=== PATIENT | female | born 1995 | race American Indian/Alaskan Native ===

== ENCOUNTER 2017-08-26 19:14 | Emergency (ER) | payer SELFPAY ==
[2017-08-26 20:32] LABS: Basophils # (Auto) 0.1 K/mm3 (0.0-0.1); Basophils % (Auto) 0.7 % (0.0-1.8); Eosinophils # (Auto) 0.3 K/mm3 (0.0-0.4); Eosinophils % (Auto) 3.5 % (0.0-4.3); Hemoglobin 12.3 gm/dl (10.1-14.3); Lymphocytes % (Auto) 27.5 % (13.4-35.0); Mean Corpuscular HGB Conc 32 % (30-34); Mean Corpuscular Hemoglobin 29 pg (28-32); Mean Corpuscular Volume 90 fl (79-97); Monocytes # (Auto) 0.6 K/mm3 (0.0-0.8); Monocytes % (Auto) 8.5 % (0.0-7.3); Platelet Count 290 K/mm3 (140-440); Red Blood Count 4.21 M/mm3 (3.65-5.03); Red Cell Distribution Width 14.7 % (13.2-15.2)
[2017-08-26 20:44] LABS: Alanine Aminotransferase 12 units/L (7-56); BUN/Creatinine Ratio 17; Blood Urea Nitrogen 10 mg/dL (7-17); Calcium 8.5 mg/dL (8.4-10.2); Hemolysis Index 0
[2017-08-26 22:24] LABS: Bacteria,Urine 1+ /HPF (Negative); Bilirubin,Urine NEG (Negative); Blood,Urine NEG (Negative); Color,Urine Yellow (Yellow); Mucus,Urine FEW /HPF; Protein,Urine <15 mg/dL mg/dL (Negative); Urobilinogen,Urine < 2.0 mg/dL (<2.0)
[2017-08-27 02:20] VITALS: BP 132/81
--- NOTE | 2017-08-27 02:52 | Emergency Department Report ---
HPI - General Chief Complaint: Abdominal Pain Time Seen by Provider: 08/27/17 02:00 - HPI HPI: 22-year-old female presents to the emergency department with complaint of a one-week history of some lower abdominal and/or pelvic cramping. She also has a history of 2 recent positive home urine test. She denies any vaginal bleeding. With this she would be . She denies any fever, vomiting, vaginal discharge, dysuria, back pain, headache. She does not have an CLAIMS ADMINISTRATOR. She denies any past medical history. No recent travel or sick contacts at home. She has not taken anything for her symptoms prior to presentation. ED Past Medical Hx - Past Medical History Previous Medical History?: Yes Additional medical history: HPV, eczema - Surgical History Past Surgical History?: Yes Additional Surgical History: dental surgery - Social History Smoking Status: Current Every Day Smoker Substance Use Type: None ED Review of Systems ROS: Stated complaint: ABD PAIN; + HOME PREG TEST Other details as noted in HPI Comment: All other systems reviewed and negative Constitutional: denies: chills, fever Eyes: denies: eye pain, eye discharge, vision change ENT: denies: ear pain, throat pain Respiratory: denies: cough, shortness of breath, wheezing Cardiovascular: denies: chest pain, palpitations Gastrointestinal: abdominal pain. denies: vomiting Genitourinary: denies: urgency, dysuria, discharge Musculoskeletal: denies: back pain, joint swelling, arthralgia Skin: denies: rash, lesions Neurological: denies: headache, weakness, paresthesias Physical Exam - Physical Exam Vital Signs: Vital Signs 08/26/17 08/27/17 20:08 02:19 Temperature 98.4 F Pulse Rate 82 84 Respiratory 18 18 Rate Blood Pressure 142/87 Blood Pressure 132/81 [Left] O2 Sat by Pulse 100 100 Oximetry ED Course Vital Signs 08/26/17 08/27/17 20:08 02:19 Temperature 98.4 F Pulse Rate 82 84 Respiratory 18 18 Rate Blood Pressure 142/87 Blood Pressure 132/81 [Left] O2 Sat by Pulse 100 100 Oximetry ED Medical Decision Making - Lab Data Result diagrams: 08/26/17 20:14 08/26/17 20:14 Critical care attestation.: If time is entered above; I have spent that time in minutes in the direct care of this critically ill patient, excluding procedure time. ED Disposition Clinical Impression: Threatened miscarriage Disposition: DC- TO HOME OR SELFCARE Is pt being admited?: No Condition: Stable Instructions: Abdominal Pain (ED), Threatened Miscarriage (ED), Spontaneous Miscarriage (ED) Additional Instructions: Please follow up with an CLAIMS ADMINISTRATOR or return to the emergency department in 3-5 days for a repeat hormone level. Today your hormone level/ beta-hCG was 170. If you get a repeat hormone level in 3-5 days and the number is increasing, this may be a very early . If the number is decreasing , then this was most likely a miscarriage. I have given you multiple CLAIMS ADMINISTRATOR referrals. Return to the emergency Department with any worsening of your symptoms or any acute distress. Referrals: [facility] [Provider Group] - 3-5 Days [facility] [Provider Group] - 3-[address] [facility] [Provider Group] - 3-5 Days Time of Disposition: 03:11
--- NOTE | 2017-08-27 02:59 | Ultrasound Report ---
FINAL REPORT EXAM: US OB < = 14 WEEKS FETUS HISTORY: pregnacy, pelvic pain COMPARISON: None available. TECHNIQUE: Several real-time grayscale and color Doppler images were obtained. Transabdominal and transvaginal exam. FINDINGS: No IUP or adnexal masses are demonstrated. The uterus measures 8.1 x 3.7 x 5.0 centimeters. Endometrial stripe measures 15 millimeters. This is borderline thickened. The right ovary measures 2.8 x 2.3 x 2.2 centimeters. The left ovary measures 4.7 x 2.8 x 4.5 centimeters. Within the left ovary, there is a cystic structure measuring 3.2 x 1.4 x 2.3 centimeters. There is a dominant follicle left ovary measuring 1.6 centimeters. There is gross vascular flow to the ovaries. Trace free fluid in the pelvis within physiologic limits. IMPRESSION: No IUP or adnexal masses are demonstrated. Endometrial stripe is borderline thickened. This may relate to patient's menstrual stage. Early developing IUP is not excluded. Correlation with serial beta HCGs and followup exam is suggested. 3.2 centimeter unilocular left ovarian cyst. This is likely physiologic given the patient's age.
== END 2017-08-27 03:40 | disposition home or self-care (01) ==
LOC: ED 19:14
DX: O20.0 Threatened abortion (principal); Z3A.00 Weeks of gestation of pregnancy not specified
CPT/HCPCS: 36415; 76801; 76817; 80053; 81001; 84702; 85025; 99284

== ENCOUNTER 2017-08-31 16:26 | Emergency (ER) | payer SELFPAY ==
[2017-08-31 17:01] VITALS: BP 159/93
--- NOTE | 2017-08-31 17:43 | Emergency Department Report ---
ED Medical Clearance HPI - General Chief complaint: Medical Clearance Stated complaint: FOLLOW UP Time Seen by Provider: 08/31/17 17:11 Source: patient Mode of arrival: Ambulatory - History of Present Illness Initial comments: This is a 22-year-old female nontoxic, well nourished in appearance, no acute signs of distress presents to the ED with c/o of for a follow-up for hCG quantitative level. Patient was seen by Dr. Summers on 08/27/2017 with a low hCG count and ultrasound obtained. Dr. Summers stated that patient was to have a repeat hCG but patient was not able to follow up with a account services analyst patient returned today. Patient denies any vaginal bleeding, bowel pain, back pain, fever, chills, nausea, vomiting, headache or stiff neck. Patient denies any symptoms. Denies any allergies or significant past medical history. Reason for Medical Clearance: laboratory abnormality Traumatic Symptoms: denies traumatic injury Associated Symptoms: denies other symptoms. denies: chest pain, shortness of breath, palpitations, diaphoresis, confusion, cough, fever/chills, headaches, anorexia, malaise, nausea/vomiting, rash, seizure, syncope, weakness Treatments Prior to Arrival: none Home medications: Previous Rx's Medication Instructions Recorded Last Taken Type Vit No.130/Iron/Folic 1 each PO QDAY #30 tablet 08/27/17 Unknown Rx [ Tablet] Allergies/Adverse reactions: Allergies Allergy/AdvReac Type Severity Reaction Status Date / Time No Known Allergies Allergy Unverified 08/26/17 20:08 ED Review of Systems ROS: Stated complaint: FOLLOW UP Other details as noted in HPI Constitutional: denies: chills, fever Eyes: denies: eye pain, eye discharge, vision change ENT: denies: ear pain, throat pain Respiratory: denies: cough, shortness of breath, wheezing Cardiovascular: denies: chest pain, palpitations Endocrine: no symptoms reported Gastrointestinal: denies: abdominal pain, nausea, diarrhea Genitourinary: denies: urgency, dysuria, discharge Musculoskeletal: denies: back pain, joint swelling, arthralgia Skin: denies: rash, lesions Neurological: denies: headache, weakness, paresthesias Psychiatric: denies: anxiety, depression Hematological/Lymphatic: denies: easy bleeding, easy bruising ED Past Medical Hx - Past Medical History Previous Medical History?: Yes Additional medical history: HPV, eczema - Surgical History Past Surgical History?: Yes Additional Surgical History: dental surgery - Social History Smoking Status: Former Smoker - Medications Home Medications: Home Medications Medication Instructions Recorded Confirmed Last Taken Type Vit No.130/Iron/Folic 1 each PO QDAY #30 tablet 08/27/17 Unknown Rx [ Tablet] ED Physical Exam - General Limitations: No Limitations General appearance: alert, in no apparent distress - Head Head exam: Present: atraumatic, normocephalic - Eye Eye exam: Present: normal appearance Pupils: Present: normal accommodation - ENT ENT exam: Present: normal exam, mucous membranes moist - Neck Neck exam: Present: normal inspection, full ROM. Absent: tenderness, meningismus, lymphadenopathy, thyromegaly - Respiratory Respiratory exam: Present: normal lung sounds bilaterally. Absent: respiratory distress, wheezes, rales, rhonchi, stridor, chest wall tenderness, accessory muscle use, decreased breath sounds, prolonged expiratory - Cardiovascular Cardiovascular Exam: Present: regular rate, normal rhythm, normal heart sounds. Absent: irregular rhythm, systolic murmur, diastolic murmur, rubs, gallop - GI/Abdominal GI/Abdominal exam: Present: soft, normal bowel sounds. Absent: distended, tenderness, guarding, rebound, rigid, diminished bowel sounds - Rectal Rectal exam: Present: deferred - Extremities Exam Extremities exam: Present: normal inspection, full ROM, normal capillary refill - Back Exam Back exam: Present: normal inspection, full ROM - Neurological Exam Neurological exam: Present: alert, oriented X3, normal gait - Psychiatric Psychiatric exam: Present: normal affect, normal mood - Skin Skin exam: Present: warm, dry, intact, normal color. Absent: rash ED Course Vital Signs 08/31/17 16:58 Temperature 98.7 F Pulse Rate 94 H Respiratory 18 Rate Blood Pressure 159/93 O2 Sat by Pulse 99 Oximetry - Reevaluation(s) Reevaluation #1: 08/31/17 17:48 Patient is speaking in full sentences with no signs of distress noted. ED Medical Decision Making - Medical Decision Making Upon examination of previous records on 08/27/2017 ultrasound was obtained and detailed by the radiologist with no IUP. HCG quantitative was 171. As per Dr. Summers patient was instructed to have a repeat hCG to rule out miscarriage versus normal early . Patient currently is asymptomatic so no ultrasound was ordered. Today HCG is at 2021, which increased from last time. Patient was notified of the hCG levels with no question about this. Patient was referred to a account services analyst to follow up in 3-5 days. At time of discharge, the patient does not seem toxic or ill in appearance. No acute signs of distress noted. Patient agrees to discharge treatment plan of care. No further questions noted by the patient. ED Disposition Clinical Impression: Qualifiers: Weeks of gestation: unspecified Qualified Code(s): Z34.90 - Encounter for supervision of normal , unspecified, unspecified trimester Disposition: DC- TO HOME OR SELFCARE Is pt being admited?: No Does the pt Need Aspirin: No Condition: Stable Instructions: (ED) Additional Instructions: Follow-up with a INK TECHNICIAN in 3-5 days or if symptoms worsen and continue return to emergency room as soon as possible. Referrals: [facility] [Primary Care Provider] - 3-5 Days LESVIA GARCIA MD [Staff Physician] - 3-5 Days [facility] [Provider Group] - 3-5 Days [facility] [Outside] - 3-5 Days [facility] [Outside] - 3-5 Days Forms: Work/School Release Form(ED)
== END 2017-08-31 18:21 | disposition home or self-care (01) ==
LOC: ED 16:26
DX: Z34.90 Encounter for supervision of normal pregnancy, unspecified, unspecified trimester (principal); Z87.891 Personal history of nicotine dependence
CPT/HCPCS: 36415; 84702; 99283

== ENCOUNTER 2017-09-07 19:34 | Emergency (ER) | payer SELFPAY ==
[2017-09-07 19:46] VITALS: BP 144/81
[2017-09-07 20:13] LABS: Basophils % (Auto) 0.6 % (0.0-1.8); Eosinophils # (Auto) 0.2 K/mm3 (0.0-0.4); Eosinophils % (Auto) 2.7 % (0.0-4.3); Hematocrit 35.7 % (30.3-42.9); Hemoglobin 11.7 gm/dl (10.1-14.3); Lymphocytes # (Auto) 2.3 K/mm3 (1.2-5.4); Lymphocytes % (Auto) 31.4 % (13.4-35.0); Mean Corpuscular HGB Conc 33 % (30-34); Mean Corpuscular Hemoglobin 29 pg (28-32); Mean Corpuscular Volume 90 fl (79-97); Monocytes # (Auto) 0.6 K/mm3 (0.0-0.8); Monocytes % (Auto) 7.8 % (0.0-7.3); Platelet Count 325 K/mm3 (140-440); Red Blood Count 3.97 M/mm3 (3.65-5.03); Red Cell Distribution Width 14.4 % (13.2-15.2)
--- NOTE | 2017-09-07 21:53 | Ultrasound Report ---
FINAL REPORT EXAM: US OB TRANSVAGINAL HISTORY: vaginal bleeding TECHNIQUE: Ultrasound pelvis transvaginal obstetrical PRIORS: None. FINDINGS: There is gestational sac present within the uterus. There is a yolk sac identified mean sac diameter 0.72 centimeters corresponding to estimated gestational age by sac diameter of 6 weeks 4 days No pole identified at this time Moderate free fluid seen within the cul-de-sac There are multiple left ovarian cysts largest is 4.0 centimeters. There is additional 3.3 centimeters cyst. These do not appear complex. Small amount of free fluid noted within the right adnexa. Right ovary is 2.7 x 2.0 x 2.1 centimeters. No abnormal mass or cyst identified Uterus is 8.8 centimeters in length IMPRESSION: Gestational sac within the uterus and yolk sac consistent with IUP. No pole yet identified. Continued followup recommended Multiple left ovarian cysts largest is 4.0 centimeters Small amount of free fluid noted at the right adnexa
--- NOTE | 2017-09-07 22:00 | Ultrasound Report ---
FINAL REPORT EXAM: US OB < = 14 WEEKS FETUS HISTORY: vaginal bleeding TECHNIQUE: Ultrasound obstetrical transabdominal PRIORS: None. FINDINGS: There is gestational sac present within the uterus. There is a yolk sac identified mean sac diameter 0.72 centimeters corresponding to estimated gestational age by sac diameter of 6 weeks 4 days No pole identified at this time Moderate free fluid seen within the cul-de-sac There are multiple left ovarian cysts largest is 4.0 centimeters. There is additional 3.3 centimeters cyst. These do not appear complex. Small amount of free fluid noted within the right adnexa. Right ovary is 2.7 x 2.0 x 2.1 centimeters. No abnormal mass or cyst identified Uterus is 8.8 centimeters in length IMPRESSION: Gestational sac within the uterus and yolk sac consistent with IUP. No pole yet identified. Continued followup recommended Multiple left ovarian cysts largest is 4.0 centimeters Small amount of free fluid noted at the right adnexa
[2017-09-07 23:01] LABS: Bacteria,Urine 1+ /HPF (Negative); Bilirubin,Urine NEG (Negative); Blood,Urine NEG (Negative); Color,Urine Yellow (Yellow); Mucus,Urine FEW /HPF; Protein,Urine <15 mg/dL mg/dL (Negative); Urobilinogen,Urine < 2.0 mg/dL (<2.0)
== END 2017-09-07 19:53 | disposition left against medical advice (07) ==
LOC: ED 19:34
DX: N93.9 Abnormal uterine and vaginal bleeding, unspecified (principal); Z53.21 Procedure and treatment not carried out due to patient leaving prior to being seen by health care provider
CPT/HCPCS: 36415; 76801; 76817; 81001; 84702; 85025; 86850; 86900; 86901

== ENCOUNTER 2017-12-08 04:03 | Outpatient (CLI) | payer MEDICAID ==
[2017-12-08 05:17] VITALS: BP 115/59
[2017-12-08] MEDS ORDERED: LACTATED RINGERS 500 ML IV ONE (06:09)
--- NOTE | 2017-12-08 07:33 | Ultrasound Report ---
FINAL REPORT PROCEDURE: US OB LIMITED TECHNIQUE: Real-time limited sonographic examination was performed for evaluation of position, placenta, amniotic fluid for each fetus with image documentation (1 or more fetuses). CPT 94290 HISTORY: vaginal leaking; LAZARO COMPARISON: No prior studies are available for comparison. FINDINGS: There is a single fetus in a vertex presentation. Cervix is closed. heart rate 155 beats per minute. Amniotic fluid has a normal appearance. The placenta is developing along the posterior uterus. No previa is identified. IMPRESSION: There is a single fetus in a vertex presentation. Amniotic fluid appears normal on this study.
== END 2017-12-08 06:51 | disposition home or self-care (01) ==
LOC: TRG 04:03
PROVIDERS: ATTEND Obstetrics & Gynecology
DX: O47.02 False labor before 37 completed weeks of gestation, second trimester (principal); Z87.891 Personal history of nicotine dependence; Z3A.20 20 weeks gestation of pregnancy
CPT/HCPCS: 59025; 76815

== ENCOUNTER 2019-03-24 18:14 | Outpatient (CLI) | payer SELFPAY ==
[2019-03-24 20:10] VITALS: BP 137/75
--- NOTE | 2019-03-24 21:18 | Ultrasound Report ---
ULTRASOUND OBSTETRIC Indication: R/O ABRUPTION AND PLACENTA PREVIA Findings: There is a single intrauterine in cephalic presentation. Placenta is located fundally. No e vidence of abruption or placenta previa. heart motion identified related 126. Impression: Intrauterine as noted Signer Name: Jonas Guzmán MD Signed: 03/24/2019 9:13 PM Workstation Name: [id number]
== END 2019-03-24 21:06 | disposition home or self-care (01) ==
LOC: TRG 18:14
PROVIDERS: ATTEND Obstetrics & Gynecology
DX: O47.03 False labor before 37 completed weeks of gestation, third trimester (principal); Z3A.30 30 weeks gestation of pregnancy
CPT/HCPCS: 59025; 76815